=== PATIENT | male | born 1960 | race Caucasian/White ===

== ENCOUNTER 2021-05-07 10:51 | Emergency (ER) | payer MEDICARE ==
[2021-05-07 12:13] LABS: BASOPHIL 0.8 % (0-2); HGB 14.7 g/dl (13.2-18.0); LYMPHOCYTE 24.2 % (15-48); MCH 30.1 pg (25.0-31.0); MCHC 34.2 g/dL (32.0-36.0); MCV 88.1 fL (78.0-100.0); MONOCYTE 11.3 % (0-12); NEUTROPHIL 62.5 % (41-80); NRBC 0; PLT 202 K/uL (150-400); RBC 4.88 M/uL (4.70-6.00); RDW 13.2 % (11.5-14.0); WBC 4.9 K/uL (4.0-10.5)
[2021-05-07 13:05] LABS: ACETAMINOPHEN (TYLENOL) < 2.0 ug/mL (10.0-30.0); ALBUMIN 3.7 g/dL (3.4-5.0); ALKALINE PHOSHATASE 63 U/L (46-116); ALT 18 U/L (16-63); AST 24 U/L (15-37); BILIRUBIN - TOTAL 0.5 mg/dL (0.2-1.0); BUN 15 mg/dL (7-18); CHLORIDE 107 mmol/L (98-107); CO2 (BICARBONATE) 27 mmol/L (21-32); CREATININE 0.79 mg/dL (0.67-1.17); GLOBULIN (CALCULATION) 3.1 g/dL; GLUCOSE 108 mg/dL (74-106); POTASSIUM 3.8 mmol/L (3.5-5.1); TOTAL PROTEIN 6.8 g/dL (6.4-8.2)
== END 2021-05-07 15:10 | disposition other institution (70) ==
LOC: FER 10:51
PROVIDERS: Emergency Medicine
DX: F20.9 Schizophrenia, unspecified (principal); F29 Unspecified psychosis not due to a substance or known physiological condition; F17.200 Nicotine dependence, unspecified, uncomplicated; Z20.822 Contact with and (suspected) exposure to COVID-19
CPT/HCPCS: 36415; 80053; 85025; 93005; 96372; G0480; J1630; J3486; U0002